=== PATIENT | female | born 1950 | race Hispanic/Latino ===

== ENCOUNTER → 2019-10-16 | Day surgery (SDC) | payer MEDICARE, OTHER ==
[2019-10-11 11:25] LABS: BASOPHILS # (AUTO) 0.1 (0.0-0.1); BASOPHILS % 0.6 % (0.0-1.0); EOSINOPHILS # (AUTO) 0.2 (0.0-0.4); EOSINOPHILS % 1.9 % (0.0-6.0); HEMOGLOBIN 13.9 g/dL (12.0-16.0); LYMPHOCYTES % 26.2 % (18.0-39.1); MEAN CORPUSCULAR HEMOGLOBIN 29.3 pg (28-32); MEAN CORPUSCULAR HGB CONC 32.3 g/dL (31-35); MEAN CORPUSCULAR VOLUME 90.5 fL (81-99); MONOCYTES # (AUTO) 0.7 (0.2-0.8); MONOCYTES % 9.4 % (4.4-11.3); NEUTROPHILS # (AUTO) 4.8 (2.1-6.9); NEUTROPHILS % 61.6 % (38.7-80.0); PLATELET COUNT 206 x10e3/uL (140-360); RED BLOOD COUNT 4.75 x10e6/uL (3.6-5.1); RED CELL DISTRIBUTION WIDTH 13.1 % (11.7-14.4)
--- NOTE | 2019-10-11 12:24 | Diagnostic Imaging Report ---
Exam: CHEST 2 VIEWS Date: 10/11/2019 12:20 PM INDICATION: ^[id number] ^1130 ^PRE-OP Comparison: None FINDINGS: Lines/Tubes:None Lungs:The lungs are well inflated. No focal consolidation or pulmonary edema. Pleura:No pleural effusion. No pneumothorax. Heart/Mediastinum:The cardiomediastinal silhouette is normal in size and contour. Bones/Soft Tissues: No acute osseous abnormality. Scoliosis of the spine is noted with associated advanced degenerative changes especially at the lower thoracic and upper lumbar spine. Upper abdomen: Unremarkable. IMPRESSION: Negative for acute intrathoracic process. Signed by: Robbie Gautam MD on 10/11/2019 12:21 PM
[~2019-10-16] MED LIST: ATROPINE SULFATE 1 MG/ML VIAL ONE; BUPIVACAINE 0.25%/EPI 30ML SDV INJ ONE; DEXAMETHASONE SOD PHOS INJ 4 MG/ML VIAL ONE; FENTANYL CITRATE/PF 100MCG/2 ML INJ ONE; HYDRALAZINE HCL 20 MG/ML VIAL ONE; KETOROLAC TROMETHAMINE 30 MG/ML VIAL ONE; LIDOCAINE HCL 2% LOCAL INJ 5 ML SDV VIAL INJ ONE; LOVASTATIN40 MG PO; MIDAZOLAM HCL 2 MG/2 ML VIAL ONE; NEOSTIGMINE 1 MG/ML 10ML VIAL ONE; ONDANSETRON HCL INJ 2MG/ML 2ML 2 MG/ML VIAL ONE; PHENTERMINE H37.5 M1 PO; PROPOFOL IV EMULSION 10 MG/ML 20 ML VIAL ONE; ROCURONIUM BROMIDE 10 MG/ML 5ML VIAL IV ONE; SEVOFLURANE INHAL SOLN 250 ML PEN BTL ONE
[2019-10-16 16:18] VITALS: BP 122/83
--- NOTE | 2019-10-16 23:42 | Operative Report ---
DATE OF PROCEDURE: SURGEON: Maddison Plummer MD PREOPERATIVE DIAGNOSIS: Adnexal mass, pelvic pain. POSTOPERATIVE DIAGNOSIS: Adnexal mass, pelvic pain. PROCEDURE: Laparoscopy, bilateral salpingo-oophorectomy, and division of adhesions. COMPLICATIONS: None. ESTIMATED BLOOD LOSS: Minimal. DESCRIPTION OF PROCEDURE: The patient was taken to the OR. General anesthesia was induced. She was prepped and draped in normal sterile fashion, placed in dorsal lithotomy position. After examination under anesthesia, skin incision was made above the umbilicus about 10 mm in length and 10 mm bladeless trocar and cannula with scope inside was passed through the abdominal wall into the abdominal cavity under direct visualization. Trocar was removed and abdomen was inflated with carbon dioxide gas with the following findings. Another port was made in the right lower quadrant after making 5 mm skin incision with scalpel and a 5 mm bladeless trocar and cannula were passed through the abdominal wall into the abdominal cavity. Two ports were made about 10 cm apart on the right side of the abdomen. Using the following findings, omentum was attached to the anterior abdominal wall. Adhesions between the uterus and the anterior abdominal wall and colon covering the left adnexa, which has about 6 cm ovarian cyst. The right adnexa looked normal. Using the LigaSure and graspers, held with the LigaSure, occluded and cut. More bites were made along the lateral side of the adnexa until it was completely freed. Following this, the tube and ovary were excised complete and freed on the left side. The same was repeated on the right side with right adnexa was held with a grasper and the infundibulopelvic ligament was ligated and cut until it was freed. Omentum was also adherent to the anterior abdominal wall and the lower part of the pelvis below the umbilicus. Adhesions were excised and removed. Minimal bleeding from the omentum was also cauterized. Following this, was introduced through the 10 mm port in the midline and was opened inside the abdomen. The specimen was placed inside and fluid of the ovarian cyst was aspirated inside the bag without any spillage. Bag was closed and removed through the umbilicus after enlarging the incision of the umbilicus. Following this, the rectus fascia was approximated using Vicryl 0 sutures and the subcutaneous fat was approximated using Vicryl 2-0 and skin was closed with subcu 4-0. Bleeding from the peritoneal surface of the incision was noted of the umbilicus and using the incision was cauterized and hemostasis was found to be adequate suction irrigation of peritoneal cavity with warm saline was performed and about 200 mL of fluid was prepped in the uterus to prevent adhesions. Abdomen was deflated and instruments were removed from the abdomen and incision at the right side of the abdomen was approximated using Dermabond. The patient tolerated the procedure well. Laps, instruments, and needle counts were correct x2 at the end of the procedure. Maddison Plummer MD DD/ALLEN /[id number]
== END | disposition home or self-care (01) ==
LOC: OR 12:01
PROVIDERS: ATTEND Obstetrics & Gynecology
DX: N83.292 Other ovarian cyst, left side (principal); K21.9 Gastro-esophageal reflux disease without esophagitis
CPT/HCPCS: 36415; 58661; 71046; 85025; 88307; 93005; J0360; J0461; J1100; J1885; J2001; J2250; J2405; J2704; J2710; J3010; U0002